=== PATIENT | male | born 1980 | race Asian ===

== ENCOUNTER 2024-05-02 10:52 | Emergency (ER) | payer BC, OTHER ==
[~2024-05-02] VITALS: Ht 182.9 cm; Wt 95.3 kg
[2024-05-02 12:24] VITALS: BP 128/70; TEMP 98.5; O2SAT 99
== END 2024-05-02 12:24 | disposition home or self-care (01) ==
LOC: ER 11:04
DX: I89.0 Lymphedema, not elsewhere classified (principal); I87.2 Venous insufficiency (chronic) (peripheral)

== ENCOUNTER 2024-05-05 11:58 | Emergency (ER) | payer BC, OTHER ==
[~2024-05-05] VITALS: Ht 180.3 cm; Wt 95.3 kg
[2024-05-05] MEDS ORDERED: CEPH-570 PO (12:16)
[2024-05-05 12:30] VITALS: BP 127/67; TEMP 98.5; O2SAT 98
== END 2024-05-05 12:30 | disposition home or self-care (01) ==
LOC: ER 12:13
DX: I87.2 Venous insufficiency (chronic) (peripheral) (principal)

== ENCOUNTER 2024-05-07 19:27 | Inpatient (IN) | payer BC, MEDICAID ==
[~2024-05-07] VITALS: Ht 182.9 cm; Wt 96.6 kg
[~2024-05-07 19:27] MED LIST: CEPH-570 PO
[2024-05-07 21:11] LABS: BASOPHILS % (AUTO) 0.4 % (0.0-2.0); EOSINOPHILS # (AUTO) 0.1 K/uL (0.0-0.7); LYMPHOCYTES # (AUTO) 2.7 K/uL (0.8-4.8); MEAN CORPUSCULAR HEMOGLOBIN 19 PG (26.0-33.0); MEAN CORPUSCULAR HGB CONC 29 g/dl (31.0-36.0); MEAN CORPUSCULAR VOLUME 65 fL (80-96); MONOCYTES # (AUTO) 0.6 K/uL (0.1-1.30); MONOCYTES % (AUTO) 11.4 % (2.0-12.0); NEUTROPHILS # (AUTO) 2.2 K/uL (1.8-8.9); NEUTROPHILS % (AUTO) 38.2 % (43.0-81.0); PLATELET COUNT (AUTO) 322 K/uL (150-450); RED BLOOD CELL COUNT(AUTO) 2.88 MIL/uL (4.5-6.0); RED CELL DISTRIBUTION WIDTH 28.2 % (11.5-15.0); WHITE BLOOD COUNT (AUTO) 5.7 K/uL (4.3-11.0)
[2024-05-07 21:20] LABS: CALCIUM, SERUM 7.9 mg/dL (8.5-10.1); CREATININE 0.7 mg/dL (0.6-1.3); HEMATOCRIT 19 % (39-51); HEMOGLOBIN 5.5 g/dL (13.5-17.5); POTASSIUM 3.7 mmol/L (3.5-5.1)
[2024-05-07 21:36] LABS: BAND % (MANUAL) 1 % (0.0-5.0); EOSINOPHILS % (MANUAL) 1 % (0-4); LYMPHOCYTES % (MANUAL) 63 % (16-48); METAMYELOCYTES % 1 % (0-0); NEUTROPHILS % (MANUAL) 34 (42-76)
[2024-05-07 21:37] LABS: ANISOCYTOSIS 1+; HYPOCHROMASIA 1+; PLATELET ESTIMATE ADEQUATE; TARGET CELLS 1+; TEAR DROP CELLS 1+
[2024-05-07 21:42] LABS: INR 1.12 (0.91-1.10); PARTIAL THROMBOPLASTIN TIME 24.3 SEC (24.3-34.3); PROTHROMBIN TIME 11.8 SECS (9.2-11.1)
[2024-05-07] MEDS ORDERED: MAG HYDROX/AL HYDROX/SIMETH 30 ML UDC PO PRN (23:00)
[2024-05-07] MEDS ORDERED: MAGNESIUM HYDROXIDE 30 ML UDC PO PRN (23:00)
[2024-05-07] MEDS ORDERED: ONDANSETRON HCL/PF 4 MG/2 ML VIAL IVP PRN (23:00)
[2024-05-07] MEDS ORDERED: ACETAMINOPHEN 325 MG TABLET PO PRN (23:00)
[2024-05-08] VITALS (11 sets, daily range): BP systolic 107–134; BP diastolic 64–80; TEMP 98.1–98.8; O2SAT 97–100
[2024-05-08 07:14] LABS: BASOPHILS % (AUTO) 0.4 % (0.0-2.0); EOSINOPHILS # (AUTO) 0.1 K/uL (0.0-0.7); EOSINOPHILS % (AUTO) 2.9 % (0.0-6.0); HEMATOCRIT 22 % (39-51); LYMPHOCYTES # (AUTO) 2.5 K/uL (0.8-4.8); LYMPHOCYTES % (AUTO) 50.6 % (20.0-44.0); MEAN CORPUSCULAR HEMOGLOBIN 21 PG (26.0-33.0); MEAN CORPUSCULAR HGB CONC 31 g/dl (31.0-36.0); MEAN CORPUSCULAR VOLUME 68 fL (80-96); MONOCYTES # (AUTO) 0.5 K/uL (0.1-1.30); MONOCYTES % (AUTO) 10.7 % (2.0-12.0); NEUTROPHILS # (AUTO) 1.8 K/uL (1.8-8.9); NEUTROPHILS % (AUTO) 35.4 % (43.0-81.0); PLATELET COUNT (AUTO) 316 K/uL (150-450); RED BLOOD CELL COUNT(AUTO) 3.16 MIL/uL (4.5-6.0); RED CELL DISTRIBUTION WIDTH 30.1 % (11.5-15.0)
[2024-05-08 07:26] LABS: ALBUMIN 2.3 g/dL (3.4-5.0); BILIRUBIN,DIRECT 0.2 mg/dL (0.0-0.2); BILIRUBIN,TOTAL 0.6 mg/dL (0.2-1.0); CALCIUM, SERUM 8.3 mg/dL (8.5-10.1); CREATININE 0.8 mg/dL (0.6-1.3); PHOSPHORUS 3.7 mg/dL (2.5-4.9); POTASSIUM 3.7 mmol/L (3.5-5.1); TOTAL PROTEIN, SERUM 7.1 g/dL (6.4-8.2)
[2024-05-08 08:26] LABS: HEMOGLOBIN 6.6 g/dL (13.5-17.5)
[2024-05-08] MEDS: PANTOPRAZOLE 40 MG VIAL IV SCH (08:30)
[2024-05-08 11:25] LABS: EOSINOPHILS % (MANUAL) 3 % (0-4); LYMPHOCYTES % (MANUAL) 55 % (16-48); MONOCYTES % (MANUAL) 2 % (0-11.0); NEUTROPHILS % (MANUAL) 40 (42-76)
[2024-05-08 11:26] LABS: PLATELET ESTIMATE ADEQUATE
[2024-05-08 11:29] LABS: ANISOCYTOSIS 1+; HYPOCHROMASIA 1+
[2024-05-08 11:30] LABS: OVALOCYTES 1+
[2024-05-08] MEDS: SOD FERRIC GLUC 125 MG in IV NS 0.9% 100 ML IV SCH (16:10)
[2024-05-08 18:10] LABS: THYROID STIMULATING HORMONE 0.65 uIU/mL (0.358-3.74)
[2024-05-09 06:28] LABS: BASOPHILS % (AUTO) 0.4 % (0.0-2.0); EOSINOPHILS # (AUTO) 0.2 K/uL (0.0-0.7); EOSINOPHILS % (AUTO) 3.1 % (0.0-6.0); HEMATOCRIT 27 % (39-51); HEMOGLOBIN 8.1 g/dL (13.5-17.5); LYMPHOCYTES # (AUTO) 2.9 K/uL (0.8-4.8); MEAN CORPUSCULAR HEMOGLOBIN 21 PG (26.0-33.0); MEAN CORPUSCULAR HGB CONC 30 g/dl (31.0-36.0); MEAN CORPUSCULAR VOLUME 71 fL (80-96); MONOCYTES # (AUTO) 0.5 K/uL (0.1-1.30); MONOCYTES % (AUTO) 8.5 % (2.0-12.0); PLATELET COUNT (AUTO) 344 K/uL (150-450); RED BLOOD CELL COUNT(AUTO) 3.87 MIL/uL (4.5-6.0); RED CELL DISTRIBUTION WIDTH 30.1 % (11.5-15.0); WHITE BLOOD COUNT (AUTO) 5.6 K/uL (4.3-11.0)
[2024-05-09 06:43] LABS: CALCIUM, SERUM 8.4 mg/dL (8.5-10.1); CREATININE 0.7 mg/dL (0.6-1.3); POTASSIUM 3.6 mmol/L (3.5-5.1)
[2024-05-09 08:00] VITALS: BP 121/74; TEMP 97.9; O2SAT 96
[2024-05-09] MEDS: PANTOPRAZOLE 40 MG TABLET.DR PO SCH (08:36)
[2024-05-09] MEDS ORDERED: PANT40TA2 PO (08:37)
[2024-05-09] MEDS ORDERED: FERR-56 PO (08:37)
[2024-05-09] MEDS ORDERED: IOHEXOL-300 100 ML VIAL IV ONE (09:16)
[2024-05-09] MEDS ORDERED: IV NS 0.9% 250 ML IV ONE (09:16)
[2024-05-09 15:37] LABS: HIV-1 p24 ANTIGEN NON REACTIVE (NONREACTIVE); HIV-1/2 ANTIBODY NON REACTIVE (NONREACTIVE)
[2024-05-09 16:00] VITALS: BP 116/83; TEMP 98.3; O2SAT 99
[2024-05-10 05:08] LABS: HEPATITIS B SURFACE AB (QUAL) Reactive (.)
[2024-05-10 06:10] LABS: HAPTOGLOBIN 105 mg/dL (23-355); IMMUNOGLOBULIN A, SERUM 291 mg/dL (90-386); IMMUNOGLOBULIN G, SERUM 2518 mg/dL (603-1613); IMMUNOGLOBULIN M, SERUM 83 mg/dL (20-172)
[2024-05-10 08:07] LABS: FOLIC ACID 7.7 ng/mL (>3.0); FREE KAPPA LT CHAINS SERUM 51.6 mg/L (3.3-19.4); KAPPA/LAMBDA RATIO SERUM 1.29 (0.26-1.65)
== END 2024-05-09 16:19 | disposition home or self-care (01) | DRG 812 ==
LOC: ER 19:29 → MED 23:49
PROC: 30233N1 Transfusion of Nonautologous Red Blood Cells into Peripheral Vein, Percutaneous Approach (ICD-10-PCS; principal; 2024-05-07)
DX: D50.9 Iron deficiency anemia, unspecified (principal); L97.829 Non-pressure chronic ulcer of other part of left lower leg with unspecified severity; F11.20 Opioid dependence, uncomplicated; I87.2 Venous insufficiency (chronic) (peripheral); I89.0 Lymphedema, not elsewhere classified; E88.09 Other disorders of plasma-protein metabolism, not elsewhere classified; F15.10 Other stimulant abuse, uncomplicated
CPT/HCPCS: 36415; 71260-TC; 80048-TC; 80076-TC; 82378; 82607-TC; 82728-TC; 82784; 83010; 83540-TC; 83615-TC; 83735-TC; 84100-TC; 84155; 84165; 84443-TC; 85025-TC; 85027-TC; 85045-TC; 85730-TC; 86334; 86706; 86803; 86850-TC; 87340; 87806; A4223; A6403; G0378; J2470; J2916; J7030; J7050; P9016; Q9967